=== PATIENT | female | born 1975 | race Two or more races ===

== ENCOUNTER 2020-10-08 09:00 | Outpatient (CLI) | payer OTHER | END 2020-10-08 23:59 | disposition home or self-care (01) | LOC: LAB 09:00 | PROVIDERS: ATTEND Specialist | DX: Z01.818 Encounter for other preprocedural examination (principal); Z20.822 Contact with and (suspected) exposure to COVID-19 | CPT/HCPCS: C9803; U0003 ==

== ENCOUNTER 2020-10-13 07:11 | Day surgery (SDC) | payer OTHER ==
[2020-10-13] MEDS ORDERED: NEOSTIGMINE METHYLSULFATE INJ 1 MG/ML VIAL IV ONE (07:12)
[2020-10-13] MEDS ORDERED: PROPOFOL 200 MG/20 ML VIAL IV ONE (07:12)
[2020-10-13] MEDS ORDERED: KETOROLAC TROMETHAMINE INJ 30 MG/ML VIAL IV ONE (07:12)
[2020-10-13] MEDS ORDERED: GLYCOPYRROLATE 0.2 MG/ML VIAL IV ONE (07:12)
[2020-10-13] MEDS ORDERED: LIDOCAINE HCL/PF 2 % 5ML SDV 5 ML VIAL IV ONE (07:12)
[2020-10-13] MEDS ORDERED: DEXAMETHASONE SOD PHOSPHATE 4 MG/ML VIAL IV ONE (07:12)
[2020-10-13] MEDS ORDERED: CEFAZOLIN 1 GM VIAL IV ONE (07:12)
[2020-10-13] MEDS ORDERED: BUPIVACAINE 0.5 % PF 150 MG/30 ML VIAL ONE ×2 (09:14→09:15)
[2020-10-13] MEDS ORDERED: ROCURONIUM BROMIDE 50 MG/5 ML ONE (09:14)
[2020-10-13] MEDS ORDERED: MIDAZOLAM HCL 2 MG/2ML VIAL ONE (09:14)
[2020-10-13] MEDS ORDERED: HYDROMORPHONE INJ 2 MG/ML DISP.SYRIN ONE (09:14)
[2020-10-13] MEDS ORDERED: EPINEPHRINE (1:1000) 1 MG/ML AMPUL ONE (09:15)
[2020-10-13] MEDS ORDERED: methylPREDNISolone ACETATE 80 MG/ML VIAL ONE (10:04)
[2020-10-13] MEDS ORDERED: ONDANSETRON HCL/PF 4 MG/2 ML VIAL ONE (11:41)
== END 2020-10-13 12:25 | disposition home or self-care (01) ==
LOC: DS 07:11
PROVIDERS: ATTEND Specialist
DX: M25.811 Other specified joint disorders, right shoulder (principal); M75.111 Incomplete rotator cuff tear or rupture of right shoulder, not specified as traumatic; I10 Essential (primary) hypertension
CPT/HCPCS: 29820; 29826; 84703; A4217; A4565; J0171; J0690 ×2; J1040; J1100 ×2; J1170; J1885 ×2; J2250; J2405 ×2; J2704 ×2; J3490 ×6; J7030